=== PATIENT | male | born 1965 ===

== ENCOUNTER 2022-01-07 08:13 | Inpatient (IN) | payer BC ==
[2022-01-07] MEDS: oxyCODONE 5 MG Tab PO PRN ×2 (15:56→20:04)
[2022-01-07] MEDS: Melatonin 3 MG Tab PO SCH (20:04)
[2022-01-08] MEDS: oxyCODONE 5 MG Tab PO PRN ×4 (05:45→20:12)
[2022-01-08] MEDS: Folic Acid 1 MG Tab PO SCH (08:29)
[2022-01-08] MEDS: Thiamine 100 MG Tab PO SCH (08:30)
[2022-01-08] MEDS: Cyanocobalamin (Vitamin B12) 500 MCG Tab PO SCH (08:30)
[2022-01-08] MEDS: Melatonin 3 MG Tab PO SCH (20:16)
[2022-01-09] MEDS: oxyCODONE 5 MG Tab PO PRN ×4 (07:32→20:15)
[2022-01-09] MEDS: Folic Acid 1 MG Tab PO SCH (08:17)
[2022-01-09] MEDS: Thiamine 100 MG Tab PO SCH (08:17)
[2022-01-09] MEDS: Cyanocobalamin (Vitamin B12) 500 MCG Tab PO SCH (08:17)
[2022-01-09] MEDS: Melatonin 3 MG Tab PO SCH (20:17)
[2022-01-10] MEDS: oxyCODONE 5 MG Tab PO PRN ×4 (04:30→20:09)
[2022-01-10] MEDS: Cyanocobalamin (Vitamin B12) 500 MCG Tab PO SCH (08:55)
[2022-01-10] MEDS: Folic Acid 1 MG Tab PO SCH (08:55)
[2022-01-10] MEDS: Thiamine 100 MG Tab PO SCH (08:56)
[2022-01-10] MEDS: amLODIPine 5 MG Tab PO SCH (11:45)
[2022-01-10] MEDS: Melatonin 3 MG Tab PO SCH (20:09)
[2022-01-11] MEDS: oxyCODONE 5 MG Tab PO PRN (04:56)
[2022-01-11] MEDS: Folic Acid 1 MG Tab PO SCH (09:04)
[2022-01-11] MEDS: Cyanocobalamin (Vitamin B12) 500 MCG Tab PO SCH (09:04)
[2022-01-11] MEDS: Thiamine 100 MG Tab PO SCH (09:04)
[2022-01-11] MEDS: amLODIPine 5 MG Tab PO SCH (09:07)
[2022-01-11] MEDS ORDERED: Acetaminophen 325 MG Tab PO PRN (09:43)
[2022-01-11] MEDS ORDERED: Naproxen 500 MG Tab PO PRN (09:50)
[2022-01-11] MEDS: Acetaminophen/HYDROcodone 325-5 MG Tab PO PRN ×2 (10:27→16:39)
[2022-01-11] MEDS: Melatonin 3 MG Tab PO SCH (20:21)
[2022-01-12] MEDS: Acetaminophen/HYDROcodone 325-5 MG Tab PO PRN ×2 (01:13→10:00)
[2022-01-12] MEDS: amLODIPine 5 MG Tab PO SCH (09:12)
[2022-01-12] MEDS: Thiamine 100 MG Tab PO SCH (09:12)
[2022-01-12] MEDS: Folic Acid 1 MG Tab PO SCH (09:12)
[2022-01-12] MEDS: Cyanocobalamin (Vitamin B12) 500 MCG Tab PO SCH (09:13)
== END 2022-01-12 15:25 | disposition home or self-care (01) | DRG 862 ==
LOC: FB.MS 14:38
PROVIDERS: ADMIT Family Medicine; ATTEND Family Medicine
DX: S72.001D Fracture of unspecified part of neck of right femur, subsequent encounter for closed fracture with routine healing (principal); I10 Essential (primary) hypertension; F17.200 Nicotine dependence, unspecified, uncomplicated; F10.10 Alcohol abuse, uncomplicated; D64.9 Anemia, unspecified; Z88.0 Allergy status to penicillin
CPT/HCPCS: 97116-GP; 97161-GP; 97165-GO; 97530-GO; 97530-GP; 97535-GO; A9270-GY